=== PATIENT | male | born 1935 | race Caucasian/White ===

== ENCOUNTER 2020-03-03 16:17 | Inpatient (IN) ==
[~2020-03-03 16:17] MED LIST: Dexamethasone 4 MG/ML VIAL IVP SCH
[2020-03-03] MEDS ORDERED: Ondansetron 4 MG/2 ML VIAL IVP ONE (16:20)
[2020-03-03] MEDS ORDERED: 0.9 % Sodium Chloride 1,000 ML IV ONE (16:20)
[2020-03-03 16:41] LABS: Hematocrit 38.9 % (37.5-50.1); Hemoglobin 13.5 g/dL (12.9-16.9); Immature Granulocytes % 0.5 % (0-4); Lymphocytes # 0.7 K/mcL (0.6-4.6); Lymphocytes % 16.8 %; Mean Corpuscular HGB Conc 34.7 g/dL (31.6-35.5); Mean Corpuscular Hemoglobin 32.1 pg (28.0-33.3); Mean Corpuscular Volume 92.6 fL (83.0-100.0); Mean Platelet Volume 9.8 fL (9.4-12.4); Monocytes # 0.3 K/mcL (0.0-1.3); Monocytes % 6.2 %; Neutrophils # 3.2 K/mcL (1.6-8.9); Platelet Count 145 K/mcL (140-400); Red Cell Distribution Width 11.6 % (11.5-14.5); Segmented Neutrophils % 76.5 %; White Blood Count 4.2 K/mcL (4.3-11.1)
[2020-03-03 16:52] LABS: INR 1.2; Prothrombin Time 13.8 Seconds (9.4-12.1)
[2020-03-03 16:55] LABS: Activated Partial Thrombo Time 31.7 Seconds (26.0-36.0)
[2020-03-03 16:55] LABS: ABG Base Excess 0 mEq/L (-2 to 3); ABG HCO3 24 mEq/L (21-27); ABG Oxygen Saturation 91 % (95-98); ABG PCO2 36 mmHg (35-45); ABG PH 7.43 pH Units (7.32-7.45); ABG PO2 58 mmHg (85-104); ABG TCO2 25 mEq/L (20-26)
[2020-03-03 17:04] LABS: Alanine Aminotransferase 9 Units/L (7-52); Albumin 3.8 g/dL (3.5-5.7); Albumin/Globulin Ratio 1.2 (1.1-2.2); Alkaline Phosphatase 48 Units/L (34-104); Aspartate Amino Transferase 26 Units/L (13-39); BUN/Creatinine Ratio 16 (6-26); Bilirubin,Total 0.6 mg/dL (0.3-1.0); Blood Urea Nitrogen 16 mg/dL (8-23); Calcium 8.8 mg/dL (8.6-10.3); Carbon Dioxide 29 mEq/L (23-29); Chloride 97 mEq/L (98-107); Globulin 3.3 g/dL (2.4-3.5); Glucose 122 mg/dL (70-105); Magnesium 2.1 mg/dL (1.6-2.6); Osmolality,Calculated 278 (280-300); Potassium 3.7 mEq/L (3.5-5.1); Sodium 133 mEq/L (136-145); Total Protein 7.1 g/dL (6.4-8.9); eGFR For African Americans > 60 (> 60); eGFR For Non-African Americans > 60 (> 60)
[2020-03-03] MEDS ORDERED: Ondansetron 4 MG/2 ML VIAL IVP PRN (18:08)
[2020-03-03] MEDS ORDERED: Naloxone 0.4 MG/ML INJ IVP PRN (18:08)
[2020-03-03] MEDS ORDERED: Mag Hydrox/Al Hydrox/Simeth 30 ML UDC PO PRN (18:08)
[2020-03-03] MEDS ORDERED: Ondansetron ODT 4 MG TAB.RAPDIS SL PRN (18:08)
[2020-03-03] MEDS ORDERED: 0.9 % Sodium Chloride 1,000 ML IVC SCH (18:15)
[2020-03-03 18:36] LABS: Bilirubin,Urine Small (Negative); Blood,Urine Negative (Negative); Clarity,Urine Clear (Clear); Color,Urine Yellow (Yellow); Glucose,Urine (UA) Normal (Normal); Ketones,Urine Trace mg/dL (Negative); Leukocyte Esterase,Urine Negative (Negative); Nitrite,Urine Negative (Negative); Protein,Urine 100 mg/dL (Neg-Trace); Specific Gravity,Urine >= 1.030 (1.010-1.025); Urobilinogen,Urine Normal (Normal)
[2020-03-03 18:43] LABS: Bacteria,Urine Moderate per hpf (None-Few); Hyaline Casts,Urine Few per lpf (None Seen); Squamous Epithelial Cell,Urine Few per hpf (None-Few)
[2020-03-03] MEDS ORDERED: cefTRIAXone 1,000 MG in Water for inj. (sterile) 10 ML IVP SCH (19:00)
[2020-03-03] MEDS ORDERED: Azithromycin 500 MG in 0.9 % Sodium Chloride 250 ML IVPB SCH (19:00)
[2020-03-03] MEDS ORDERED: 0.9 % Sodium Chloride 250 ML ONE (20:37)
[2020-03-03] MEDS ORDERED: Acetaminophen 325 MG TABLET PO PRN (21:00)
[2020-03-03] MEDS ORDERED: Dexamethasone 4 MG/ML VIAL IVP ONE (22:40)
[2020-03-03 22:45] VITALS: BP 112/62
[2020-03-04] MEDS ORDERED: *HR* Enoxaparin 40 MG/0.4 ML SYRINGE SQ SCH (06:00)
[2020-03-04 12:59] LABS: Adenovirus Not Detected (Not Detect); Bordetella Pertussis Not Detected (Not Detect); Chlamydophila pneumoniae Not Detected (Not Detect); Coronavirus 229E Not Detected (Not Detect); Coronavirus HKU1 Not Detected (Not Detect); Coronavirus NL63 Not Detected (Not Detect); Coronavirus OC43 Not Detected (Not Detect); Human Metapneumovirus Not Detected (Not Detect); Human Rhinovirus/Enterovirus Not Detected (Not Detect); Influenza A Subtype 2009 H1 Not Detected (Not Detect); Influenza B Not Detected (Not Detect); Mycoplasma pneumoniae Not Detected (Not Detect); Parainfluenza Virus 1 Not Detected (Not Detect); Parainfluenza Virus 2 Not Detected (Not Detect); Parainfluenza Virus 3 Not Detected (Not Detect); Parainfluenza Virus 4 Not Detected (Not Detect); Respiratory Syncytial Virus Not Detected (Not Detect)
== END 2020-03-04 00:30 | disposition short-term general hospital (02) | DRG 179 ==
LOC: INPGRE 16:17 → EMEROOGRE 16:17 → INPGRE 18:51
PROVIDERS: ADMIT Family Medicine; ATTEND Family Medicine